=== PATIENT | female | born 1990 ===

== ENCOUNTER 2022-07-19 12:21 | Inpatient (IN) | payer OTHER ==
[~2022-07-19] VITALS: Ht 162.6 cm; Wt 60.3 kg
== END 2022-07-21 11:54 | disposition home or self-care (01) | DRG 807 ==
LOC: LDR 12:21 → OB/GYN 17:03
PROVIDERS: ADMIT Obstetrics & Gynecology Maternal & Fetal Medicine; ATTEND Obstetrics & Gynecology Maternal & Fetal Medicine
PROC: 10E0XZZ Delivery of Products of Conception, External Approach (ICD-10-PCS; principal; 2022-07-19)
PROC: 0W8NXZZ Division of Female Perineum, External Approach (ICD-10-PCS; 2022-07-19)
DX: O80 Encounter for full-term uncomplicated delivery (principal); Z37.0 Single live birth; Z3A.38 38 weeks gestation of pregnancy; Z20.822 Contact with and (suspected) exposure to COVID-19

== ENCOUNTER 2024-12-02 09:46 | Outpatient (CLI) | payer OTHER | END 2024-12-02 09:52 | disposition home or self-care (01) | LOC: MAMO-SONO 09:46 | PROVIDERS: ATTEND Obstetrics & Gynecology Gynecology | DX: N63 Unspecified lump in breast (principal); Z12.31 Encounter for screening mammogram for malignant neoplasm of breast; N64.4 Mastodynia; N60.11 Diffuse cystic mastopathy of right breast; E04.1 Nontoxic single thyroid nodule ==